=== PATIENT | female | born 1955 | race Caucasian/White ===

== ENCOUNTER 2018-11-07 10:10 | Outpatient (CLI) | payer BC, MEDICARE | END 2018-11-07 10:11 | disposition home or self-care (01) | LOC: RAD 10:10 ==

== ENCOUNTER 2018-11-22 09:56 | Day surgery (SDC) | payer BC, MEDICARE ==
[2018-11-16 12:44] VITALS: BMI 40.0
[2018-11-22 11:05] LABS: BASO # 0.06 K/mm3 (0.0-2.0); BASO % 1.5 % (0.0-3.0); EOS # 0.1 (0.0-0.7); HEMOGLOBIN 11.6 g/dL (12.0-16.0); LYMPH # 0.8 (1.2-3.4); LYMPH % 20.7 % (22.0-35.0); MEAN CELL VOLUME 68.7 fl (80.0-105.0); MEAN CORPUSCULAR HEMOGLOBIN 21.6 pg (25.0-35.0); MEAN CORPUSCULAR HGB CONC 31.5 g/dl (31.0-37.0); MEAN PLATELET VOLUME 8.7 fl (7.0-11.0); MONO # 0.4 (0.1-0.6); MONO % 9.7 % (1.0-6.0); RBC 5.36 10^6/uL (3.5-6.1); RED CELL DISTRIBUTION WIDTH 14.8 % (11.5-14.5); WHITE BLOOD COUNT 3.9 10^3/uL (4.5-11.0)
[2018-11-22 11:12] LABS: BLOOD UREA NITROGEN 14 mg/dL (7-21); CALCIUM 10.1 mg/dL (8.4-10.5); GFR NON-AFRICAN AMERICAN > 60
[2018-11-22 11:17] LABS: INR 1.19; PARTIAL THROMBOPLASTIN TIME 29.9 Seconds (26.9-38.3); PROTHROMBIN TIME 13.4 SECONDS (9.4-12.5)
[2018-11-22] MEDS ORDERED: Lidocaine 2% Inj (20ml) ONE (13:30)
[2018-11-22] MEDS ORDERED: Midazolam 2 MG/2 ML VIAL ONE ×2 (13:39→14:01)
[2018-11-22] MEDS ORDERED: Oxycodone/Acetaminophen 5/325 mg Tab PO PRN (14:36)
[2018-11-22] MEDS ORDERED: Sodium Chloride 0.45% 1,000 ML IV SCH (14:45)
[2018-11-22 14:55] VITALS: O2SAT 99
[2018-11-22 15:14] VITALS: BP 137/76; PULSE 81; RESP 20; TEMP 98
--- NOTE | 2018-11-22 18:30 | VASCULAR ---
PROCEDURE: Ultrasound and fluoroscopic right internal jugular venous access port. CLINICAL HISTORY: Endometrial carcinoma.Venous port for chemotherapy. PHYSICIAN(S): Maximino Meza M.D. TECHNIQUE: The relative risks and indications of the procedure were explained to the patient and consent obtained. The patient was placed supine on the arteriogram table and the right neck and chest prepped and draped in the usual sterile fashion. Conscious sedation monitoring was provided throughout the procedure by a nurse. Antibiotics were given prior to the procedure. Under direct ultrasound guidance, the right internal jugular vein was punctured with a micro-puncture set. A 0.035 angled Glidewire was advanced into the IVC. A 4 cm incision was made below the right clavicle and the pocket blunted dissected. A 8 American single-lumen catheter, 17 cm long, was advanced to the SVC/RA junction. The catheter was trimmed and attached to the port. The port aspirates and injects easily. The port was placed in the pocket and closed in 2 layers. The patient tolerated the procedure well. IMPRESSION: Ultrasound and fluoroscopically placed right internal jugular venous access port.
== END 2018-11-22 17:15 | disposition home or self-care (01) ==
LOC: SDS 09:56
PROVIDERS: ATTEND Radiology Vascular & Interventional Radiology
DX: C54.1 Malignant neoplasm of endometrium (principal)
CPT/HCPCS: 36415; 36561; 76937; 77001; 80048; 85025; 85610; 85730; 99152; 99153; C1769; C1788; J0690; J1644; J2250; J2405; J3010; J7030